=== PATIENT | female | born 1995 | race Caucasian/White ===

== ENCOUNTER 2020-04-04 20:25 | Outpatient (CLI) | payer MEDICAID, SELFPAY ==
[2020-04-04 20:46] VITALS: BP 163/77; PULSE 87
[2020-04-04 20:59] VITALS: BP 124/75; PULSE 85
[2020-04-04 21:00] VITALS: TEMP 36.9; BMI 43.4
[2020-04-04 21:09] VITALS: BP 117/60; PULSE 91
[2020-04-04 21:15] VITALS: BP 117/60; PULSE 91; RESP 16; TEMP 36.9
== END 2020-04-04 21:20 | disposition home or self-care (01) ==
LOC: OPOB 20:41 → OBGYN 21:15
PROVIDERS: Family Provider Family Medicine; PCP Family Medicine; Visit Provider Family Medicine
DX: O36.8190 Decreased fetal movements, unspecified trimester, not applicable or unspecified (principal); Z3A.00 Weeks of gestation of pregnancy not specified
CPT/HCPCS: 99211

== ENCOUNTER 2020-04-28 12:03 | Inpatient (IN) | payer MEDICAID, SELFPAY ==
[2020-04-28] VITALS (51 sets, daily range): BP systolic 0–185; BP diastolic 0–92; PULSE 68–102; RESP 16–18; TEMP 36.6–37; O2SAT 90–99; BMI 44.1
[2020-04-28 12:57] LABS: Basophils % 0.3 %; Eosinophils % 0.2 %; Hematocrit 36.4 % (37.0-47.0); Hemoglobin 11.6 g/dL (11.5-15.3); Lymphocytes % 16.8 %; Mean Corpuscular HGB Conc 31.9 g/dL (30.0-36.0); Mean Corpuscular Hemoglobin 26.9 pg (28.0-34.0); Mean Corpuscular Volume 84.5 fL (81-99); Mean Platelet Volume 10.6 fL (7.4-10.4); Monocytes # 0.4 10^3/uL (0.2-0.9); Monocytes % 3.8 %; Neutrophils # 9.11 10^3/uL (1.8-7.7); Neutrophils % 78.6 %; Nucleated Red Blood Cells % 0 %; Platelet Count 274 10^3/cmm (130-400); Red Blood Count 4.31 10^6/uL (4.1-5.3); White Blood Count 11.6 10^3/uL (4.0-10.0)
[2020-04-28] MEDS: miSOPROStol 100 mcg tablet 25 MCG VAGINAL ×2 (13:00→18:01)
[2020-04-28] MEDS: lactated ringers 1,000 ML 999 ML IV (15:09)
[2020-04-28] MEDS: acetaminophen 325 mg Tablet 650 MG PO (21:17)
[2020-04-28] MEDS: fentaNYL 50 mcg/mL INJ 2mL IV (22:28)
--- NOTE | 2020-04-28 23:06 | ANES.PREANE2 ---
Pre-Anesthetic Assessment Pre-Anesthetic Assessment: Height/Weight: Height 1.75 m Weight 135.624 kg Temp Pulse Resp BP 97.8 F 81 18 159/75 04/28/20 12:14 04/28/20 20:31 04/28/20 22:28 04/28/20 20:31 Preop Diagnosis: labor pains Proposed Procedure: epidural Was Beta Elmer taken within 24 hours: N/A Social: Social History: No alcohol and No tobacco Exam: Pre-Anes Outpt Exam: alert, oriented x 3, clear to auscultation bilaterally and regular rate & rhythm Airway: Submandibular: WNL Cervical ROM: WNL MP: 2 Dentition: Full Pulmonary: Pulmonary: None reported CV/HEM: CV/HEM: HTN : : None reported Hepatic: Hepatic: None reported GI: GI: GERD Metabolic: Metabolic: Morbid obesity Musc/skel: Musc/skel: None reported Neuropsych: Neuropsych: None reported Anesthetic Plan: ASA status: 2 Anesthesia: Eval. for regional block Risk of > 500 ml blood loss (7ml/kg in children): No Meds/Allergies Current Medications: Current Medications Generic Name Dose Route Start Last Admin Trade Name Freq PRN Reason Stop Dose Admin Acetaminophen 650 mg 04/28/20 12:14 04/28/20 21:17 Tylenol PO 650 mg Q6H PRN Administration Mild pain or temp > 100.4 Fentanyl 25 - 100 mcg 04/28/20 12:14 04/28/20 22:28 Sublimaze IV 25 mcg Q1H PRN Administration SEVERE PAIN Lactated Ringer's 1,000 mls @ 999 m ls/hr 04/28/20 12:14 04/28/20 15:39 Lactated Ringers IV 0 mls/hr .Q1H1M PRN Infusion Per L&D Rescitati on Protocol Dextrose/Lactated Ringer's 1,000 mls @ 125 m ls/hr 04/28/20 12:15 04/28/20 17:04 Dextrose 5%-Lact ated Ringers IV Not Given .Q8H JULIUS PFSH Anesthesia Female Reproductive History: : 1 Data Anesthesia CBC & Chem 7: 04/28/20 12:35 Other Labs: Laboratory Results - last 48 hr 04/28/20 12:35 WBC 11.6 H RBC 4.31 Hgb 11.6 Hct 36.4 L MCV 84.5 MCH 26.9 L MCHC 31.9 RDW 15.0 Plt Count 274 MPV 10.6 H Neut % (Auto) 78.6 Lymph % (Auto) 16.8 [place] % (Auto) 3.8 Eos % (Auto) 0.2 Baso % (Auto) 0.3 Neut # (Auto) 9.11 H Lymph # (Auto) 2.0 [place] # (Auto) 0.4 Eos # (Auto) 0.0 Baso # (Auto) 0.0 Nucleated RBC % (auto) 0 Nucleated RBCs # 0.0 Cardiac Studies: No Data to Display
--- NOTE | 2020-04-28 23:33 | ANES.PROC ---
Anesthesia Procedures Procedure/Date: 04/28/20 epidural Procedure Narrative: epidural complete, bolus given, epidural pump initiated with RESEARCH ASSISTANT education given, vitals taken during procedure using OBIX system and satisfactory throughout, patient admits to decrease pain, report of procedure to OB RN Epidural: Time Out Performed: Yes Consents Signed: Procedure Consent Consent: requested by attending/covering physician, from patient, risks and benefits reviewed and patient agrees to proceed Lumbar Level: L3-L4 Epidural position: sitting Epidural procedure: sterile prep of area, 1% lidocaine to numb the area (3 mL), 18 g needle, negative for paresthesia passed, neg for paresthesia, test dose given, 1.5% xylocaine 1:200k epi (5 mL), 0.2% Ropivacaine bolus ml (5 mL), placed PCEA, no systemic response, sterile dressing applied, L.U.D. no apparent complications and 0.2% Ropiavacaine @ mls/hr (13 mL/hr)
[2020-04-29] VITALS (95 sets, daily range): BP systolic 0–178; BP diastolic 0–87; PULSE 77–116; RESP 18–20; TEMP 36.6–37.6; O2SAT 97–99
--- NOTE | 2020-04-29 06:24 | P.PCNOB_ITS ---
Delivery Note: Date of delivery: April 29, 2020 this 24-year-old 1 now para 1 female with an EDC of 05/09/2020 was seen in the office on the day prior to delivery and found to have a blood pressure of 160s over 90s. She had also gained 6 pounds over the past week. She had no proteinuria but as she was 39 weeks with elevated blood pressures a decision was made to place the patient in the hospital for cervical ripening and induction. Benefits and risks were discussed with the patient and she agreed to proceed with this. She was given misoprostol 25 mcg x 2 doses last evening. She began having stronger contractions and was given epidural anesthesia. Her labor progressed throughout the night and early this morning she was dilated to complete cervical dilatation. This physician was called and the patient very quickly was able to deliver a healthy, viable female infant at 0606. The head was delivered and mouth and nose were suctioned at the perineum. The right shoulder was then delivered anteriorly followed by the posterior left shoulder. The was then completely delivered. She was then suctioned more prior to laying the infant on the mother's abdomen. After approximately 1 minute the umbilical cord was clamped and cut by the infant's father. The umbilical cord was noted to hav e 3 blood vessels. The placenta delivered spontaneously at 06 11. There was a small right first-degree perineal laceration which did not require repair. A sweep of the vaginal vault and fundal massage produced a very small amount of clots and bleeding. Apgars were 8 and 9 at 1 and 5 minutes respectively and infant weighed 7 pounds 12 ounces. There were no complications and estimated blood loss was approximately 114 mL. Pre-Delivery Course: This patient was followed by this physician throughout her course without major concerns or problems. Maternal blood type was AB+ with antibody negative. Rubella was immune and group B strep was negative. The patient was sent to labor and delivery secondary to elevated blood pressure. She had received no medications for this. Delivery: Spontaneous vaginal delivery. Post-Delivery Status: Patient doing well and will be followed for routine postdelivery care. A&P Assessment and plan (1) Normal spontaneous vaginal delivery: Routine postdelivery care. Monitor for problems or concerns. Status: Acute Coding Level of Care Code Acute Die Mounter for Chacho Dubon Diagnoses Normal spontaneous vaginal delivery O80
[2020-04-29] MEDS: docusate sodium 100 mg Capsule PO ×2 (08:02→22:13)
[2020-04-29] MEDS: prenatal vitamin Capsule 1 CAP PO (08:02)
--- NOTE | 2020-04-29 10:05 | PC.NURSE ---
Patient ambulated in [facility]am[facility] from LDR room to room. Assisted by nurse.
[2020-04-29] MEDS: benzocaine-menthol 78 gm Canister 1 SPRAY TOPICAL (11:11)
[2020-04-29 20:59] LABS: Hematocrit 33.7 % (37.0-47.0); Hemoglobin 10.8 g/dL (11.5-15.3); Mean Corpuscular Hemoglobin 27.1 pg (28.0-34.0); Mean Corpuscular Volume 84.5 fL (81-99); Mean Platelet Volume 10.3 fL (7.4-10.4); Platelet Count 218 10^3/cmm (130-400); Red Blood Count 3.99 10^6/uL (4.1-5.3); Red Cell Distribution Width 15.5 % (12.1-15.1); White Blood Count 15.1 10^3/uL (4.0-10.0)
[2020-04-30] VITALS: BP 128/78; PULSE 92; RESP 18; TEMP 36.6
[2020-04-30] MEDS: HYDROcodone-acetaminophen 5-325 mg Tablet PO (04:00)
[2020-04-30 06:00] VITALS: BP 115/74; PULSE 86; RESP 15; TEMP 36.6; O2SAT 98
--- NOTE | 2020-04-30 08:47 | PM.OBGYDC ---
Discharge Providers FOURDRINIER TENDER Date of Admission: 04/28/20 12:03 Date of Discharge: 04/30/20 Attending Provider at Admission: Julio Clifton MD Attending Provider at Discharge: Julio Clifton MD Primary Care Provider: Ar Love MD Diagnoses at Discharge Discharge Diagnosis (1) Normal spontaneous vaginal delivery: Status: Acute Problem details: Patient is doing very well . She has mild lochia and is tolerating a regular diet and ambulating well. She is felt to be stable for discharge. Hospital Course Hospital Course: As above, the patient has done well postdelivery and is stable for discharge. She has had only mild lochia. She is formula feeding. Information Peripartum Data: Delivery Method: Vaginal Physical Exam Const: COMMON NORMALS: no acute distress and healthy appearing Resp: COMMON NORMALS: normal respiratory effort, No retractions, No use of accessory muscles and clear to auscultation bilaterally AUSCULTATION: clear to auscultation bilaterally Cardio: COMMON NORMALS: regular rate, regular rhythm and No murmurs present (Cardio) RATE: regular rate RHYTHM: regular rhythm GI: COMMON NORMALS: Normal to inspection, nondistended, normoactive bowel sounds present, Soft to palpation and non-tender (Fundus is firm.) PALPATION: Yes Soft to palpation Extremity: COMMON NORMALS: normal to inspection, full ROM and capillary refill normal Neuro: COMMON NORMALS: CN's II-XII intact bilaterally, moves all extremities, no focal motor deficits and no sensory deficits noted Psych: COMMON NORMALS: mental status grossly normal Urinary Catheter Management^: Gregorio Latex: Cath Placed During This Visit: yes, but has since been removed by the nurse Reason for Continuing Indwelling Catheter: Other Urinary Catheter Date of Insertion: 04/29/20 Urinary Catheter Time of Insertion: 00:00 Date Urinary Catheter Removed: 04/29/20 Time Urinary Catheter Discontinued: 05:55 Discharge Data Data Completed and Pending: Pending at discharge Category Date Time Status PTC COVID [[place] virus Lab Test PTC ] Stat Lab 04/28/20 12:40 Received Labs from last 24 hours 04/29/20 04/29/20 20:50 20:00 WBC 15.1 H Cancelled Corrected WBC Cancelled RBC 3.99 L Cancelled Hgb 10.8 L Cancelled Hct 33.7 L Cancelled MCV 84.5 Cancelled MCH 27.1 L Cancelled MCHC 32.0 Cancelled RDW 15.5 H Cancelled Plt Count 218 Cancelled MPV 10.3 Cancelled Vitals: Last Vital Signs Temp 97.8 F 04/30/20 06:00 Pulse 86 04/30/20 06:00 Resp 15 04/30/20 06:00 BP 115/74 04/30/20 06:00 Pulse Ox 98 04/30/20 06:00 Discharge Plan Discharge Patient Disposition: Home Condition: Stable Prescriptions: New docusate sodium 100 mg Capsule 100 mg PO BID Qty: 60 RF: 2 ibuprofen 800 mg Tablet 800 mg PO TID Qty: 90 RF: 2 Continued omeprazole 10 mg Capsule,Delayed Release(Dr/Ec) 10 mg PO PRN PRN (Reason: Indigestion) RF: 0 vit-iron fum-folic ac [ Tablet] 28 mg iron- 800 mcg Tablet 1 tab PO DAILY RF: 0 Discharge Orders: Discharge Order (Routine); Ordered 04/30/20 Ordered By: Julio Clifton Referrals: Julio Clifton MD [Physician] - 6 Weeks (Follow-up with Dr. Clifton in 6 weeks and as needed.) Discharge Diet: Usual diet Discharge Activity: Resume usual activity Discharge Attestations FOURDRINIER TENDER Time Spent in Discharge Care*: less than 30 min Specific Discharge Activities: Specific discharge activities: educating patient, documenting/other paperwork and evaluating patient/reviewing data Status at Discharge: Cognitive status at discharge: cognitively intact, Behavioral status at discharge: cooperative, Functional status at discharge: independent ambulation Overall status at discharge: patient is back to baseline Coding Level of Care Code Acute Director Food Safety for Chg Fwd Diagnoses Normal spontaneous vaginal delivery O80
--- NOTE | 2020-04-30 09:50 | ANE.PACU2 ---
Inpatient post-anesthesia follow up: Airway intact: Yes Vital signs: Temperature 97.8 F Pulse Rate 86 Respiratory Rate 15 Blood Pressure 115/74 Pulse Oximetry 98 Oxygen Delivery Me thod Room Air Oxygen Flow Rate Fraction of Inspir ed Oxygen Hydration adequate: Yes Nausea and vomiting: No Pain level: 2 Mental status: Baseline Additional Comments: No signs of infection at neuraxial site, up and walking, no headaches
[2020-04-30] MEDS: prenatal vitamin Capsule 1 CAP PO (10:05)
[2020-04-30] MEDS: docusate sodium 100 mg Capsule PO (10:05)
[2020-04-30 10:34] LABS: Coronavirus Lab Test PTC Negative
[2020-04-30 10:48] VITALS: BP 113/86; PULSE 80; RESP 17; TEMP 36.9; O2SAT 98
[2020-04-30 10:50] VITALS: BP 113/86; PULSE 80; RESP 17; TEMP 36.9; O2SAT 98
== END 2020-04-30 10:52 | disposition home or self-care (01) | DRG 807 ==
PROVIDERS: Admitting Provider Family Medicine; Family Provider Family Medicine; PCP Family Medicine; Visit Provider Family Medicine
DX: O13.4 Gestational [pregnancy-induced] hypertension without significant proteinuria, complicating childbirth (principal); Z37.0 Single live birth; O70.0 First degree perineal laceration during delivery; Z3A.39 39 weeks gestation of pregnancy
CPT/HCPCS: 12345; 36415; 51702; 59025; 59409; 85025; 85027; 87635; 96374; J3010

== ENCOUNTER → 2021-02-26 16:02 | Outpatient (BNVA) | payer MEDICAID, SELFPAY | PROVIDERS: Family Provider Family Medicine; PCP Family Medicine; Visit Provider Nurse Practitioner Family | DX: Z20.822 Contact with and (suspected) exposure to COVID-19 (principal) | CPT/HCPCS: 87635 ==

== ENCOUNTER 2021-07-23 | Outpatient (CLI) | payer MEDICAID, SELFPAY | END 2021-07-23 00:01 | disposition home or self-care (01) | LOC: LAB 12-24 15:04 | PROVIDERS: PCP Family Medicine; Visit Provider Family Medicine | DX: Z34.81 Encounter for supervision of other normal pregnancy, first trimester (principal) | CPT/HCPCS: 84702 ==

== ENCOUNTER 2021-08-24 11:33 | Emergency (ER) | payer MEDICAID, SELFPAY ==
--- NOTE | 2021-08-24 11:44 | US_ITS ---
WS: [id number] EARLY OBSTETRICAL ULTRASOUND (<14 WEEKS). HISTORY: 9 weeks and bleeding COMPARISON: None. Single intrauterine gestational sac is identified. No cardiac activity identified. [place]-rump length measures 1.3 cm which corresponds to a gestation of 7w4d. Normal-appearing yolk sac and amnion demons trated. No subchorionic hemorrhage. No free fluid. Normal size ovaries with no mass. Small amount of fluid along the cervical canal. US/US OB <=14 wk fetus w transvag IMPRESSION: 1. Single uterine gestation of 7 weeks 5 days. 2. No cardiac activity identified. At this gestational age cardiac activity sh ould be readily visible. Findings consistent with embryonic demise.
[2021-08-24 11:45] VITALS: PULSE 89; RESP 16; TEMP 36.3; O2SAT 98; BMI 41.3
--- NOTE | 2021-08-24 11:49 | W.ED.PREGNAN ---
HPI - General: Chief complaint: Vaginal Bleeding Stated complaint: 9 Wks /bleeding Time Seen by Provider: 08/24/21 11:49 History of Present Illness: HPI Narrative: 26-year-old female presents emergency room approximately 9 weeks gestation per 7-week ultrasound done at her primary OBs office 2 weeks ago. She has had painless vaginal bleeding that began earlier today. She denies any abdominal pain. She previously had ultrasound that confirmed intrauterine . MD Complaint: vaginal bleeding Onset (ago): hour(s) Pain Consistency: intermittent Relieving factors: none Vaginal discharge: none Date of Last Menstrual Period: 05/24/21 OB History - Current : no complications care: followed by OB and previous ultrasound confirms IUP Associated symptoms: Deny abdominal pain, dyspareunia, dysuria, headache(s), malaise, nausea, rash, seizures, short of breath, syncope, vaginal bleeding, vaginal discharge, visual changes, vomiting or weakness Review of Systems Const: Denies: malaise ENMT: Denies: throat pain, ear or mastoid pain, nasal discharge or nasal congestion Card: Denies: syncope Resp: Denies: dyspnea, productive cough or non-productive cough GI: Denies: abdominal pain, nausea or vomiting : Denies: dysuria, vaginal discharge or dyspareunia Skin/Breast: Denies: rash or pruritus Neuro: Denies: headache(s) PFSH ED PFSH: Medical History (Updated 08/24/21 @ 13:05 by Shaggy Pollard DO) Obesity state, incidental (~05/2021) Social History (Updated 08/24/21 @ 13:00 by Shaggy Pollard DO) Smoking and tobacco status: never smoked Alcohol intake: never Female Reproductive History: Date of last menstrual period: 05/24/21 Physical Exam Const: COMMON NORMALS: no acute distress GENERAL APPEARANCE: cooperative and comfortable ORIENTATION/CONSCIOUSNESS: Yes awake, Yes oriented to person, Yes oriented to place and Yes oriented to time HENMT: COMMON NORMALS: normocephalic, atraumatic and hearing grossly normal bilaterally HEAD & SCALP: normocephalic and atraumatic Neck/C-Spine: COMMON NORMALS: no JVD Resp: COMMON NORMALS: normal respiratory effort, No retractions, No use of accessory muscles and clear to auscultation bilaterally AUSCULTATION: clear to auscultation bilaterally Cardio: COMMON NORMALS: no JVD, regular rate, regular rhythm and No murmurs present (Cardio) RATE: regular rate RHYTHM: regular rhythm GI: COMMON NORMALS: Soft to palpation and No hepatosplenomegaly present AUSCULTATION: Yes normoactive bowel sounds PALPATION: Yes Soft to palpation, No Tenderness to palpation present (GI), No Guarding due to palpation present (GI) and Yes No hepatosplenomegaly present : SPECULUM EXAM - VAGINA: No vaginal bleeding OB/EXTERNAL & SPECULUM: No vaginal bleeding Extremity: COMMON NORMALS: normal to inspection, capillary refill normal, no clubbing, cyanosis or edema, no calf tenderness and no pedal edema Neuro: SENSORIUM/ORIENTATION: Yes oriented to person, Yes oriented to place and Yes oriented to time Course Vital Signs: Vital signs: Vital Signs Temperature 97.4 F L 08/24/21 11:45 Pulse Rate 89 08/24/21 11:45 Respiratory Rate 16 08/24/21 11:45 Pulse Oximetry 98 08/24/21 11:45 MDM - OB/Uterine Contractions MDM Narrative: Medical decision making narrative: Patient is Rh+. Ultrasound confirms intrauterine however there is an off heart activity. Her beta-hCG is quite low for this point in . Reviewed with the patient we will have her follow-up with Dr. Sadler her primary OB next week and return if she has further problems anticipate she will continue to have some bleeding and likely to have increased cramping. She not having significant of bleeding now. Lab Data: Labs: Lab Results 08/24/21 08/24/21 08/24/21 12:11 12:11 12:11 WBC 10.6 10^3/uL H 10 ^3/uL (4.0-10.0) RBC 4.98 10^6/uL 10^6 /uL (4.1-5.3) Hgb 14.4 g/dL g/dL (11.5-15.3) Hct 44.5 % % (37.0-47.0) MCV 89.4 fl fl (81-99) MCH 28.9 pg pg (28.0-34.0) MCHC 32.4 g/dL g/dL (30.0-36.0) RDW 12.5 % % (12.1-15.1) Plt Count 255 10^3/cmm 10^3 /cmm (130-400) MPV 9.6 fL fL (7.4-10.4) Neut % (Auto) 70.8 % % Lymph % (Auto) 24.1 % % [place] % (Auto) 3.5 % % Eos % (Auto) 0.8 % % Baso % (Auto) 0.5 % % Neut # (Auto) 7.52 10^3/uL 10^3 /uL (1.8-7.7) Lymph # (Auto) 2.6 10^3/uL 10^3/ uL (0.8-4.8) [place] # (Auto) 0.4 10^3/uL 10^3/ uL (0.2-0.9) Eos # (Auto) 0.1 10^3/uL 10^3/ uL (0.0-0.8) Baso # (Auto) 0.1 10^3/uL 10^3/ uL (0.0-0.1) Nucleated RBC % (a uto) 0 % % Nucleated RBCs # 0.0 /100WBC /100W BC Sodium 137 mmol/L mmol/L (136-145) Potassium 3.9 mmol/L mmol/L (3.5-5.1) Chloride 101 mmol/L mmol/L (98-107) Carbon Dioxide 19 mmol/L L mmol/ L (22-29) Anion Gap 20.9 H (5-19) BUN 8 mg/dL mg/dL (6-20) Creatinine 0.5 mg/dL mg/dL (0.5-0.9) GFR Calculation 150.3 mL/min H mL /min (90-130) Glucose 98 mg/dL mg/dL (65-115) Calculated Osmolal ity 282 mOsm/kg L mOs m/kg (285-295) Calcium 9.7 mg/dL mg/dL (8.5-10.5) Total Bilirubin 0.3 mg/dL mg/dL (0.15-1.2) AST 12 U/L U/L (0-32) ALT 9 U/L U/L (0-33) Alkaline Phosphata se 126 IU/L H IU/L (35-105) Total Protein 7.5 g/dL g/dL (6.6-8.7) Albumin 4.1 g/dL g/dL (3.5-5.2) Globulin 3.4 g/dL g/dL (1.3-4.6) Ser , María i-Qnt 2197.00 mIU/mL mI U/mL Rho(D) Type Positive Discharge Plan Discharge Patient Disposition: Home Clinical Impression: Spontaneous miscarriage Condition: Stable Prescriptions: No Action Gummies 400 mcg-35 mg- 25 mg-5 mg Tablet,Chewable 2 tab PO QAM RF: 0 Discharge Orders: Discharge ED (Routine); Ordered 08/24/21 Ordered By: Shaggy Pollard Referrals: Ar Love MD [Primary Care Provider] - Discharge Diet: Usual diet Discharge Activity: Resume usual activity Patient Instructions: Opioid Safety Activity Restrictions/Additional Instructions: Follow-up with your primary care doctor within the next week. Coding Level of Care Code ED Drug Inspector for Chacho Fwd Exam Comprehensive
[2021-08-24 12:24] LABS: Basophils # 0.1 10^3/uL (0.0-0.1); Basophils % 0.5 %; Eosinophils # 0.1 10^3/uL (0.0-0.8); Eosinophils % 0.8 %; Hematocrit 44.5 % (37.0-47.0); Hemoglobin 14.4 g/dL (11.5-15.3); Lymphocytes # 2.6 10^3/uL (0.8-4.8); Lymphocytes % 24.1 %; Mean Corpuscular HGB Conc 32.4 g/dL (30.0-36.0); Mean Corpuscular Hemoglobin 28.9 pg (28.0-34.0); Mean Corpuscular Volume 89.4 fl (81-99); Mean Platelet Volume 9.6 fL (7.4-10.4); Monocytes # 0.4 10^3/uL (0.2-0.9); Monocytes % 3.5 %; Neutrophils # 7.52 10^3/uL (1.8-7.7); Neutrophils % 70.8 %; Nucleated Red Blood Cells % 0 %; Platelet Count 255 10^3/cmm (130-400); Red Blood Count 4.98 10^6/uL (4.1-5.3); Red Cell Distribution Width 12.5 % (12.1-15.1); White Blood Count 10.6 10^3/uL (4.0-10.0)
[2021-08-24 12:56] LABS: Alanine Aminotransferase 9 U/L (0-33); Albumin Level 4.1 g/dL (3.5-5.2); Alkaline Phosphatase 126 IU/L (35-105); Anion Gap 20.9 (5-19); Aspartate Amino Transferase 12 U/L (0-32); Blood Urea Nitrogen 8 mg/dL (6-20); Calcium 9.7 mg/dL (8.5-10.5); Carbon Dioxide 19 mmol/L (22-29); Chloride 101 mmol/L (98-107); Globulin 3.4 g/dL (1.3-4.6); Glomerular Filtration Rate 150.3 mL/min (90-130); Glucose 98 mg/dL (65-115); Osmolality Calculated 282 mOsm/kg (285-295); Potassium 3.9 mmol/L (3.5-5.1); Sodium 137 mmol/L (136-145); Total Bilirubin 0.3 mg/dL (0.15-1.2); Total Protein 7.5 g/dL (6.6-8.7)
== END 2021-08-24 13:47 | disposition home or self-care (01) ==
PROVIDERS: Physician Assistant; Emergency Provider Family Medicine; PCP Family Medicine
DX: O03.9 Complete or unspecified spontaneous abortion without complication (principal)
CPT/HCPCS: 76801; 76817; 80053; 84702; 85025; 99283

== ENCOUNTER → 2022-01-20 10:34 | Outpatient (BNVA) | payer MEDICAID, SELFPAY | PROVIDERS: PCP Family Medicine; Visit Provider Emergency Medicine | DX: R05.9 Cough, unspecified (principal); J06.9 Acute upper respiratory infection, unspecified | CPT/HCPCS: 87400; 87880 ==

== ENCOUNTER 2022-04-22 12:42 | Outpatient (CLI) | payer MEDICAID, SELFPAY ==
[2022-04-22] VITALS (7 sets, daily range): BP systolic 115–141; BP diastolic 56–81; PULSE 82–93; BMI 43.2
[2022-04-22 13:50] LABS: Add Urine Culture? Yes; Bacteria Urine 1+ /hpf; Bilirubin Urine Neg (Negative); Blood Urine Neg (Negative); Glucose Urine UA Norm (Normal); Ketones Urine Negative (Negative); Leukocyte Esterase Urine Negative (Negative); Nitrate Urine Negative (Negative); Protein Urine Neg (Negative); RBC Urine 0-4 /hpf (0-2); Specific Gravity, Urine 1.015 (1.005-1.030); Urine Appearance Clear (CLEAR); Urine Color Yellow (Yellow); Urobilinogen Urine Norm (Negative); WBC Urine 0-4 /hpf (0-5); pH Urine 7 (5-7)
== END 2022-04-22 14:24 | disposition home or self-care (01) ==
LOC: OPOB 12:42 → OBGYN 12:43
PROVIDERS: PCP Family Medicine; Visit Provider Family Medicine
DX: O47.03 False labor before 37 completed weeks of gestation, third trimester (principal); Z3A.31 31 weeks gestation of pregnancy
CPT/HCPCS: 59025; 81001; 87086; 99211

== ENCOUNTER 2022-05-23 17:59 | Outpatient (CLI) | payer MEDICAID, SELFPAY ==
[2022-05-23 18:00] VITALS: RESP 17; BMI 46.3
[2022-05-23 18:13] VITALS: BP 126/73; PULSE 98
[2022-05-23 18:28] VITALS: BP 136/64; PULSE 88
[2022-05-23 18:43] VITALS: BP 128/60; PULSE 88
[2022-05-23 18:45] LABS: Nitrazine Paper, PH Negative
[2022-05-23 18:58] VITALS: BP 114/56; PULSE 90
[2022-05-23 19:13] VITALS: BP 115/62; PULSE 85; RESP 16
== END 2022-05-23 19:30 | disposition home or self-care (01) ==
LOC: OPOB 18:00 → OBGYN 18:00
PROVIDERS: PCP Family Medicine; Visit Provider Family Medicine
DX: O26.899 Other specified pregnancy related conditions, unspecified trimester (principal); Z3A.00 Weeks of gestation of pregnancy not specified; N89.8 Other specified noninflammatory disorders of vagina
CPT/HCPCS: 59025; 83986; 99211

== ENCOUNTER 2022-06-11 17:04 | Inpatient (IN) | payer MEDICAID, SELFPAY ==
[2022-06-11] VITALS (14 sets, daily range): BP systolic 119–147; BP diastolic 63–85; PULSE 84–102; RESP 15–16; BMI 46.0
[2022-06-11 17:27] LABS: Basophils % 0.3 %; Eosinophils # 0.1 10^3/uL (0.0-0.8); Eosinophils % 0.5 %; Hematocrit 33.3 % (37.0-47.0); Hemoglobin 10.8 g/dL (11.5-15.3); Lymphocytes # 2.3 10^3/uL (0.8-4.8); Lymphocytes % 21.2 %; Mean Corpuscular HGB Conc 32.4 g/dL (30.0-36.0); Mean Corpuscular Hemoglobin 26.6 pg (28.0-34.0); Mean Platelet Volume 10.3 fL (7.4-10.4); Monocytes # 0.6 10^3/uL (0.2-0.9); Monocytes % 5.5 %; Neutrophils # 7.73 10^3/uL (1.8-7.7); Neutrophils % 71.6 %; Nucleated Red Blood Cells % 0 %; Platelet Count 223 10^3/cmm (130-400); Red Blood Count 4.06 10^6/uL (4.1-5.3); White Blood Count 10.8 10^3/uL (4.0-10.0)
[2022-06-11] MEDS: dextrose 5%-lactated ringers 1,000 ML 125 ML IV (17:49)
[2022-06-11] MEDS: miSOPROStol 100 mcg tablet 25 MCG VAGINAL ×2 (17:50→22:13)
[2022-06-12] VITALS (55 sets, daily range): BP systolic 115–185; BP diastolic 58–120; PULSE 80–122; RESP 16–17; TEMP 36.5–37; O2SAT 91–100
[2022-06-12] MEDS: lactated ringers 1,000 ML 999 ML IV ×2 (00:17→01:50)
--- NOTE | 2022-06-12 01:15 | ANES.PREANE2 ---
Pre-Anesthetic Assessment Height/Weight: Height 1.7 m Weight 133.356 kg Pulse Resp BP O2 Del Method 85 16 143/85 06/11/22 22:17 06/11/22 21:05 06/11/22 22:17 06/11/22 17:00 Preop Diagnosis: labor pains epidural Familial anesthetic complications: none Was Beta Elmer taken within 24 hours: N/A Was Clonidine taken within 24 hours: N/A Social No alcohol and No tobacco Exam alert, oriented x 3, clear to auscultation bilaterally and regular rate & rhythm Airway Submandibular: within normal limits Cervical ROM: within normal limits Mallampati: Class II Dentition: full Pulmonary None reported CV/HEM None reported None reported Hepatic None reported GI Gastroesophageal Reflux Disease Metabolic None reported Musc/skel None reported Neuropsych Headache Anesthetic Plan ASA status: 2 Anesthesia: Regional (specify below) Risk of > 500 ml blood loss (7ml/kg in children): No Medications/Allergies Home Medications Medication Instructions Recorded Confirmed Last Taken Type PNV 153-FA 400 mcg-om3 35 mg-dha 2 tab PO QAM 08/24/21 01/20/22 06/11/22 08:00 History 25 mg-epa 5 mg-fish oil chew tablet ( Gummies) Allergies Allergy/AdvReac Type Severity Reaction Status Date / Time No Known Allergies Allergy Verified 06/11/22 17:14 Current Medications Generic Name Dose Route Start Last Admin Trade Name Freq PRN Reason Stop Dose Admin Dextrose/Lactated Ringer's 1,000 mls @ 125 mls/hr 06/11/22 17:15 06/11/22 17:49 Dextrose 5%-Lactated Ringers IV 125 mls/hr .Q8H JULIUS Administration Lactated Ringer's 1,000 mls @ 999 mls/hr 06/12/22 00:05 06/12/22 00:17 Lactated Ringers IV 999 mls/hr .Q1H1M PRN Administration See label comments Misoprostol 25 mcg 06/11/22 17:45 06/11/22 22:13 Misoprostol 100 Mcg Tablet VAGINAL 06/12/22 01:46 25 mcg Q4H JULIUS Administration PFSH Anesthesia Medical History Obesity state, incidental (~05/2021) Social History Smoking and tobacco status: never smoked Alcohol intake: never Female Reproductive History Date of last menstrual period: 05/24/21 Data Anesthesia : 06/11/22 17:15 Short CBC 06/11/22 Range/Units 17:15 WBC 10.8 H (4.0-10.0) 10^3/uL Hgb 10.8 L (11.5-15.3) g/dL Hct 33.3 L (37.0-47.0) % MCV 82.0 (81-99) fl Plt Count 223 (130-400) 10^3/cmm Neut % (Auto) 71.6 % Neut # (Auto) 7.73 H (1.8-7.7) 10^3/uL Cardiac Studies: No Data to Display
--- NOTE | 2022-06-12 02:08 | ANES.PROC ---
Anesthesia Procedures Procedure/Date: 06/12/22 epidural Procedure Narrative: epidural complete, bolus given, epidural pump initiated with STATE TROOPER education given, vitals taken during procedure and satisfactory throughout, patient admits to decrease pain, report of procedure to OB RN Epidural: Time Out Performed: Yes Consents Signed: Procedure Consent Consent: requested by attending/covering physician, from patient, risks and benefits reviewed and patient agrees to proceed Lumbar Level: L3-L4 Epidural position: sitting Epidural procedure: sterile prep of area, 1% lidocaine to numb the area (3 mL), 18 g needle, negative for paresthesia passed, neg for paresthesia, test dose given, 1.5% xylocaine 1:200k epi (5 mL), 0.2% Ropivacaine bolus ml (5 mL), placed PCEA, no systemic response, sterile dressing applied, L.U.D. no apparent complications and 0.2% Ropiavacaine @ mls/hr (13 mL/hr)
[2022-06-12] MEDS: dextrose 5%-lactated ringers 1,000 ML 125 ML IV (02:58)
[2022-06-12] MEDS: ondansetron 2 mg/ML SDV 2 mL 4 MG IVP (04:05)
[2022-06-12] MEDS: oxytocin 30 UNIT/500 ML BAG 600 UNIT IV (04:08)
--- NOTE | 2022-06-12 04:25 | PM.DELIVERY ---
Delivery Note: Date of delivery: June 12, 2022 Pre-delivery diagnoses: 26-year-old 3 para 1-0-1-1 with an estimated gestational age of 39 weeks Post-delivery diagnoses: Status post spontaneous vaginal delivery Procedure: Spontaneous vaginal delivery Delivering Physician: Kike Sadler Estimated blood loss (mL): 200 Pre-Delivery Course: The patient presented to the hospital for induction due to presumed macrosomia. The patient was placed on Cytotec 25 mcg per vagina x2. An epidural was placed. She progressed to complete without difficulty. Spontaneous rupture of membranes occurred. Delivery: DELIVERY: The patient progressed to complete without difficulty. She delivered a female with a weight of 8 pounds 7 ounces with Apgars of 8, 9. The baby was delivered from the SAJAN position and placed on the mother's abdomen. The cord was then clamped and cut. There was a nuchal cord x1. The baby was delivered through the nuchal cord. There was no meconium. The placenta and 3 vessel cord were delivered intact shortly thereafter. The perineum and vaginal vault were carefully examined. No lacerations were noted. Both the mother and the baby were in stable condition. Post-Delivery Status: Good A&P Assessment and plan (1) 39 weeks gestation of : I anticipate routine care. (2) Spontaneous vaginal delivery: Coding Level of Care Code Acute Registered Nurse Step Down for Chg Fwd Diagnoses 39 weeks gestation of Z3A.39 Spontaneous vaginal delivery O80
--- NOTE | 2022-06-12 04:29 | PM.OPHPUD ---
Labor & Delivery H&P Update Date of Procedure: June 12, 2022 Date H&P Performed: 06/10/22 Changes to previous documentation: None Admission Diagnosis: 26-year-old 3 para 1-0-0-1 with likely macrosomia Preop diagnosis: labor pains Planned procedure: Spontaneous vaginal delivery Other information: Andrew is a 39-week female presenting to the hospital for induction. Her has been relatively unremarkable. She has been measuring 3 to 4 cm ahead for the last month. Otherwise her has been relatively unremarkable. Her blood type is AB+. Her antibody screen is negative. Her glucose screen was 94 her GBS status is negative. She is rubella immune. Otherwise her infectious disease profile has been within normal limits. Related Problem List Diagnoses (1) 39 weeks gestation of : I anticipate a routine induction with a spontaneous vaginal delivery. Because of the mother's BMI, and the measurements of the , we are aware of the possibility of macrosomia and possible complications that could result. (2) Obesity: A&P Assessment and plan (1) 39 weeks gestation of : Status: Acute (2) Obesity: Status: Acute
[2022-06-12] MEDS: docusate sodium 100 mg Capsule PO ×2 (08:03→18:00)
[2022-06-12] MEDS: prenatal vitamin Capsule 1 CAP PO (08:03)
[2022-06-12] MEDS: ibuprofen 800 mg tablet PO ×3 (08:03→20:34)
[2022-06-12] MEDS: HYDROcodone-acetaminophen 5-325 mg Tablet PO ×2 (10:22→18:00)
--- NOTE | 2022-06-12 14:14 | ANE.PACU2 ---
Inpatient post-anesthesia follow up: Airway intact: Yes Vital signs: Temperature 98.1 F Pulse Rate 87 Respiratory Rate 16 Blood Pressure 125/80 Pulse Oximetry 98 Oxygen Delivery Me thod Room Air Oxygen Flow Rate Fraction of Inspir ed Oxygen Hydration adequate: Yes Nausea and vomiting: No Pain level: 2 Mental status: Baseline
[2022-06-12 16:54] LABS: Hematocrit 31.3 % (37.0-47.0); Hemoglobin 9.5 g/dL (11.5-15.3); Mean Corpuscular HGB Conc 30.4 g/dL (30.0-36.0); Mean Corpuscular Hemoglobin 26.2 pg (28.0-34.0); Mean Corpuscular Volume 86.5 fl (81-99); Mean Platelet Volume 10.2 fL (7.4-10.4); Platelet Count 175 10^3/cmm (130-400); Red Blood Count 3.62 10^6/uL (4.1-5.3); Red Cell Distribution Width 14.1 % (12.1-15.1); White Blood Count 14.2 10^3/uL (4.0-10.0)
[2022-06-12] MEDS: benzocaine-menthol 78 gm Canister 1 SPRAY TOPICAL (20:35)
[2022-06-12] MEDS: acetaminophen 325 mg Tablet 650 MG PO (21:44)
[2022-06-13 04:36] VITALS: BP 136/85; PULSE 86; RESP 16
[2022-06-13] MEDS: acetaminophen 325 mg Tablet 650 MG PO (05:04)
--- NOTE | 2022-06-13 06:46 | P.DS_ITS ---
Discharge Providers ENTRY LEVEL CHEMIST Date of Admission: 06/11/22 17:04 Date of Discharge: 06/13/22 Attending Provider at Admission: Kike Sadler MD Attending Provider at Discharge: Kike Sadler MD Primary Care Provider: Ar Love MD Diagnoses at Discharge Discharge Diagnosis (1) 39 weeks gestation of : Status: Acute (2) Obesity: Status: Acute Reason for Visit Reason for Visit: induction Hospital Course Hospital Course The patient presented to the hospital for induction. She was placed on Cytotec 25 mcg x 2. She then progressed to complete had spontaneous rupture of membranes. She then had an unremarkable delivery of a healthy-appearing 39-week female . Her course was unremarkable. Her bleeding was within normal limits. She bottle-fed her baby. Her pain was well controlled. There were no concerns. Information Peripartum Data: Infant Delivery Method: Vaginal Physical Exam Narrative: The patient is alert. She appears comfortable. Her heart has a regular rate and rhythm with no murmurs appreciated. Lungs are clear to auscultation bilaterally. Her fundus is firm and below the umbilicus. Urinary Catheter Management: Gregorio: Cath Placed During This Visit: yes, but has since been removed by the nurse Reason for Continuing Indwelling Catheter: Decision to DC Catheter Urinary Catheter Date of Insertion: 06/12/22 Urinary Catheter Time of Insertion: 02: Date Urinary Catheter Removed: 06/12/22 Time Urinary Catheter Discontinued: 04:09 Discharge Data Studies Completed and Pending Laboratory Results WBC 14.2 10^3/uL (4.0-10.0) H 06/12/22 16:05 RBC 3.62 10^6/uL (4.1-5.3) L 06/12/22 16:05 Hgb 9.5 g/dL (11.5-15.3) L 06/12/22 16:05 Hct 31.3 % (37.0-47.0) L 06/12/22 16:05 MCV 86.5 fl (81-99) D 06/12/22 16:05 MCH 26.2 pg (28.0-34.0) L 06/12/22 16:05 MCHC 30.4 g/dL (30.0-36.0) D 06/12/22 16:05 RDW 14.1 % (12.1-15.1) 06/12/22 16:05 Plt Count 175 10^3/cmm (130-400) 06/12/22 16:05 MPV 10.2 fL (7.4-10.4) 06/12/22 16:05 Neut % (Auto) 71.6 % 06/11/22 17:15 Lymph % (Auto) 21.2 % 06/11/22 17:15 [place] % (Auto) 5.5 % 06/11/22 17:15 Eos % (Auto) 0.5 % 06/11/22 17:15 Baso % (Auto) 0.3 % 06/11/22 17:15 Neut # (Auto) 7.73 10^3/uL (1.8-7.7) H 06/11/22 17:15 Lymph # (Auto) 2.3 10^3/uL (0.8-4.8) 06/11/22 17:15 [place] # (Auto) 0.6 10^3/uL (0.2-0.9) 06/11/22 17:15 Eos # (Auto) 0.1 10^3/uL (0.0-0.8) 06/11/22 17:15 Baso # (Auto) 0.0 10^3/uL (0.0-0.1) 06/11/22 17:15 Nucleated RBC % (auto) 0 % 06/11/22 17:15 Nucleated RBCs # 0.0 /100WBC 06/11/22 17:15 Vitals Last Vital Signs Temp 98.1 F 06/12/22 22:36 Pulse 86 06/13/22 04:36 Resp 16 06/13/22 04:36 BP 136/85 06/13/22 04:36 Pulse Ox 98 06/12/22 16:00 O2 Del Method 06/12/22 16:00 Discharge Plan Discharge Patient Disposition: Home Condition: Stable Prescriptions: New ibuprofen 800 mg Tablet 800 mg PO TID Qty: 30 0RF Continued Gummies 400 mcg-35 mg- 25 mg-5 mg Tablet,Chewable 2 tab PO QAM Discharge Orders: Discharge Order (Routine); Ordered 06/13/22 Ordered By: Kike Sadler Referrals: Kike Sadler MD [Physician] - 07/23/22 12:45 pm Discharge Diet: Usual diet Discharge Activity: Limit activity as instructed Patient Instructions: Ibuprofen (By mouth), Preeclampsia During (DC), Bleeding (DC), Hemorrhage (DC), OB Discharge Report, OB Food/Drug Interaction Guide, OB Care at Home, Opioid Safety, OB P ostpartum Home Care, OB Vaginal Deliveries, Abnormal Bleeding Discharge Attestations ENTRY LEVEL CHEMIST Time Spent in Discharge Care*: less than 30 min Status at Discharge: Cognitive status at discharge: cognitively intact , Behavioral status at discharge: cooperative , Coding Level of Care Code Acute Entry Level Chemist for Chg Fwd Diagnoses 39 weeks gestation of Z3A.39 Obesity E66.9
[2022-06-13] MEDS: HYDROcodone-acetaminophen 5-325 mg Tablet PO (07:26)
[2022-06-13] MEDS: ibuprofen 800 mg tablet PO (09:04)
[2022-06-13] MEDS: prenatal vitamin Capsule 1 CAP PO (09:04)
[2022-06-13] MEDS: docusate sodium 100 mg Capsule PO (09:04)
[2022-06-13 09:05] VITALS: BP 146/88; PULSE 116; RESP 17; TEMP 36.4
== END 2022-06-13 09:40 | disposition home or self-care (01) | DRG 807 ==
LOC: OBGYN 06-12 12:16
PROVIDERS: Admitting Provider Family Medicine; PCP Family Medicine; Visit Provider Family Medicine
DX: O69.2XX0 Labor and delivery complicated by other cord entanglement, with compression, not applicable or unspecified (principal); Z37.0 Single live birth; O99.214 Obesity complicating childbirth; O36.63X0 Maternal care for excessive fetal growth, third trimester, not applicable or unspecified; Z3A.39 39 weeks gestation of pregnancy
CPT/HCPCS: 12345; 36415; 51702; 59025; 59409; 85025; 85027; 96374; J2405; J2590; J2795; J7120; J7121

== ENCOUNTER 2023-11-24 22:25 | Emergency (ER) | payer MEDICAID, SELFPAY ==
[2023-11-24 22:30] VITALS: BP 159/99; PULSE 83; RESP 18; TEMP 36.8; O2SAT 99; BMI 43.2
--- NOTE | 2023-11-24 22:51 | XRR_ITS ---
PROCEDURE INFORMATION: Exam: XR Chest Exam date and time: 11/24/2023 11:07 PM Age: 28 years old Clinical indication: Other: Hypertensive; Additional info: Elevated BP, no dx of HTN TECHNIQUE: Imaging protocol: Radiologic exam of the chest. Views: 1 view. COMPARISON: No relevant prior studies available. FINDINGS: Lungs: Unremarkable. No consolidation. Pleural spaces: Unremarkable. No pleural effusion. No pneumothorax. Heart/Mediastinum: Unremarkable. No cardiomegaly. Bones/joints: Unremarkable. XR/XR chest 1V [id number] IMPRESSION: No acute findings.
--- NOTE | 2023-11-24 22:54 | ED_ITS ---
Documented by User: HERNÁN Levi 11/25/23 02:46 HPI - General Adult 2 General: Chief complaint: General Medical Stated complaint: high bp Time Seen by Provider: 11/24/23 22:30 Source: patient Mode of arrival: ambulatory Limitations: no limitations History of Present Illness: Patient presents emergency department today for evaluation treatment of elevated blood pressure readings. Patient states that for at least a year, she has been dealing with elevated blood pressure readings off and on. She states that she noticed elevated blood pressure readings since having her daughter. She states it does not happen all the time but becomes symptomatic with redness and flushing in her face and headache. She states she had symptoms today and had a blood pressure reading with systolic over 200 and diastolic over 100. She states symptoms will sometimes last an hour or so. She often takes Tylenol for her headache during these times. Patient has never been seen by her primary care doctor for complaints of elevated blood pressure reading and does not take blood pressure medication. She does have a family history of hypertension and heart disease. Patient admits that she is feeling better since her elevated blood pressure readings at home but still has a mild headache. She denies any known triggers for her episodes of elevated blood pressure. Review of Systems 2 General: Reports: 10 or more systems reviewed and unremarkable except in HPI and below PFSH ED 2 PFSH: Medical History state, incidental (~05/2021) Obesity Social History Smoking and tobacco/nicotine status: never used tobacco/nicotine Alcohol intake: never Female Reproductive History: Date of last menstrual period: 11/09/23 Physical Exam 2 Const: COMMON NORMALS: no acute distress, patient oriented x3 and alert O THER: Patient is pleasant, social. Answers her own history. Eye: COMMON NORMALS: Equal, round and reactive pupils present, EOMs intact bilaterally and conjunctivae normal CONJUNCTIVA: Yes conjunctivae normal P UPIL: Yes Equal, round and reactive pupils present Neck/C-Spine: COMMON NORMALS: full ROM and no JVD Lymph: LYMPHATIC: no lymphadenopathy noted Resp: COMMON NORMALS: normal respiratory effort, No retractions and No use of accessory muscles Cardio: COMMON NORMALS: no JVD, regular rate and regular rhythm RATE: r egular rate RHYTHM: regular rhythm : COMMON NORMALS: Yes no CVA tenderness BLADDER/KIDNEY EXAM: Yes no CVA tenderness Back/Pelvis: COMMON NORMALS: no CVA tenderness, thoracic and lumbar spine normal to inspection and thoraco-lumbar ROM normal Extremity: COMMON NORMALS: normal to inspection, full ROM and no pedal edema OTHER: Independently ambulatory weightbearing here in the emergency department. Neuro: COMMON NORMALS: patient oriented x3, CN's II-XII intact bilaterally, moves all extremities, no focal motor deficits and gait normal S ENSORIUM/ORIENTATION: Yes alert Skin: COMMON NORMALS: no rashes or lesions noted and turgor normal GENERAL SKIN EXAM: no rashes or lesions noted and turgor normal Course 2 Vital Signs: Vital signs: Vital Signs Temperature 98.3 F 11/25/23 00:38 Pulse Rate 86 11/25/23 00:38 Respiratory Rate 16 11/25/23 00:38 Blood Pressure 142/91 11/25/23 00:38 Pulse Oximetry 97 11/25/23 00:38 Oxygen Delivery Me thod Room Air 11/24/23 22:30 MDM - General Adult Medical Decision Making Patient presents today for evaluation and treatment of recurrent episodes of elevated blood pressure readings. Patient states she does get symptomatic which is what makes her aware that her blood pressure is elevated. She is not sure of any known triggers for her blood pressure. Evaluation here in the emergency department revealed no acute concerns either with a chest x-ray, EKG, lab work/urinalysis-UA with very vague findings of bacteria and white blood cells though there is contamination. Will send to lab for culture over the next 48 hours to evaluate for any bacterial growth. Secondary evaluation of the patient's workup provided by Dr. Jean Baptiste here in the emergency department. Patient is relatively asymptomatic at this time. Her blood pressure is improved at the time of discharge-upon my arrival to the room the patient's systolic reading was in the 140s. We had a long discussion regarding blood pressure. Explained that sometimes, we can treat acutely but, if patient is having recurrent episodes of elevated blood pressure readings, she may need something daily. However, we did discuss the dangers of having too low a blood pressure reading. For that reason, Dr. Jean Baptiste recommends that she keep a log of blood pressure readings until she is able to follow-up with her primary care doctor in the next couple of days. They can talk about recommended treatment course. I also encouraged her to adhere to a Dash diet and diet information was provided at discharge. We discussed signs and symptoms of hypertensive urgency/emergency. She needs to return to the emergency department for chest pains, shortness of breath, blurred or loss of vision, worst headache of her life, dizziness or one-sided body weakness, numbness, or drooping. Differential Diagnosis Acutely elevated blood pressure readings, hypertensive urgency, hypertensive emergency, hypertrophic cardiomyopathy Lab Data 11/24/23 23:00 11/24/23 23:00 Radiology Impressions Chest X-Ray 11/24/23 22:51 IMPRESSION: No acute findings. Laboratory Results WBC 11.74 10^3/uL (3.29-11.43) H 11/24/23 23:00 RBC 5.11 10^6/uL (3.85-5.65) 11/24/23 23:00 Hgb 15.10 g/dL (11.27-16.99) 11/24/23 23:00 Hct 45.7 % (36-47) 11/24/23 23:00 MCV 89.4 fl (85-98) 11/24/23 23:00 MCH 29.5 pg (27-33) 11/24/23 23:00 MCHC 33.0 g/dL (30-55) 11/24/23 23:00 RDW 12.5 % (12.1-15.1) 11/24/23 23:00 Plt Count 249 10^3/cmm (157-399) 11/24/23 23:00 MPV 9.5 fL (7.4-10.4) 11/24/23 23:00 Neut % (Auto) 62.7 % 11/24/23 23:00 Lymph % (Auto) 30.9 % 11/24/23 23:00 [place] % (Auto) 4.7 % 11/24/23 23:00 Eos % (Auto) 0.9 % 11/24/23 23:00 Baso % (Auto) 0.4 % 11/24/23 23:00 Neut # (Auto) 7.35 10^3/uL (1.8-7.7) 11/24/23 23:00 Lymph # (Auto) 3.6 10^3/uL (0.8-4.8) 11/24/23 23:00 [place] # (Auto) 0.6 10^3/uL (0.2-0.9) 11/24/23 23:00 Eos # (Auto) 0.1 10^3/uL (0.0-0.8) 11/24/23 23:00 Baso # (Auto) 0.1 10^3/uL (0.0-0.1) 11/24/23 23:00 Nucleated RBC % (auto) 0 % 11/24/23 23:00 Nucleated RBCs # 0.0 /100WBC 11/24/23 23:00 Sodium 140 mmol/L (136-145) 11/24/23 23:00 Potassium 3.9 mmol/L (3.5-5.1) 11/24/23 23:00 Chloride 104 mmol/L (98-107) 11/24/23 23:00 Carbon Dioxide 26 mmol/L (22-29) 11/24/23 23:00 Anion Gap 13.9 (5-19) 11/24/23 23:00 BUN 12 mg/dL (6-20) 11/24/23 23:00 Creatinine 0.6 mg/dL (0.5-0.9) 11/24/23 23:00 GFR Calculation 119.9 mL/min (90-130) 11/24/23 23:00 Glucose 96 mg/dL (65-115) 11/24/23 23:00 Calculated Osmolality 290 mOsm/kg (285-295) 11/24/23 23:00 Calcium 9.5 mg/dL (8.5-10.5) 11/24/23 23:00 Total Bilirubin 0.2 mg/dL (0.15-1.2) 11/24/23 23:00 AST 12 U/L (0-32) 11/24/23 23:00 ALT 7 U/L (0-33) 11/24/23 23:00 Alkaline Phosphatase 133 U/L (35-105) H 11/24/23 23:00 Total Protein 7.7 g/dL (6.6-8.7) 11/24/23 23:00 Albumin 4.0 g/dL (3.5-5.2) 11/24/23 23:00 Globulin 3.7 g/dL (1.3-4.6) 11/24/23 23:00 HCG, Qual Negative (Negative) 11/24/23 23:17 Urine Color Light yellow (Yellow) 11/24/23 23:17 Urine Appearance Cloudy (CLEAR) A 11/24/23 23:17 Urine pH 8 (5-7) H 11/24/23 23:17 Ur Specific [place] 1.015 (1.005-1.030) 11/24/23 23:17 Urine Protein Neg (Negative) 11/24/23 23:17 Urine Glucose (UA) Norm (Normal) 11/24/23 23:17 Urine Ketones Negative (Negative) 11/24/23 23:17 Urine Blood Neg (Negative) 11/24/23 23:17 Urine Nitrate Negative (Negative) 11/24/23 23:17 Urine Bilirubin Neg (Negative) 11/24/23 23:17 Prot Sulfosalicylic Acd Negative (Negative) 11/24/23 23:17 Urine Urobilinogen Neg mg/dL (Negative) 11/24/23 23:17 Ur Leukocyte Esterase Trace (Negative) H 11/24/23 23:17 Urine RBC None /hpf (0-2) 11/24/23 23:17 Urine WBC 0-4 /hpf (0-5) H 11/24/23 23:17 Ur Squamous Epith Cells 5-10 /hpf (0-5) H 11/24/23 23:17 Amorphous Sediment 3+ /hpf 11/24/23 23:17 Urine Bacteria Trace /hpf (NONE) 11/24/23 23:17 Urine Mucus 1+ /hpf 11/24/23 23:17 All radiology interpretation(s) finalized by discharge Discharge Plan Discharge Patient Disposition: Home Clinical Impression: Elevated blood pressure reading without diagnosis of hypertension Condition: Stable Prescriptions: No Action norgestimate-ethinyl estradiol [Kba-Jb-Ithlimwq] 0.18/0.215/0.25 mg-25 mcg tablet 1 tab PO DAILY sulfamethoxazole-trimethoprim [Bactrim DS] 800-160 mg tablet 1 tab PO BID 7 Days Qty: 14 0RF Gummies 400 mcg-35 mg- 25 mg-5 mg Tablet,Chewable 2 tab PO QAM ibuprofen 800 mg Tablet 800 mg PO TID Qty: 30 0RF Discharge Orders: Discharge ED (Routine); Ordered 11/25/23 Ordered By: Marie Linton Referrals: Kike Sadler MD [Primary Care Provider] - Discharge Diet: Cardiac Discharge Activity: Increase activity as tolerated Patient Instructions: How to Take a Blood Pressure Reading (ED), DASH Eating Plan (ED), Hypertensive Crisis (ED), Hypertension (ED) Activity Restrictions/Additional Instructions: Labs today show no signs of any kidney injury due to recurrent elevated blood pressure readings. As we discussed, blood pressure will fluctuate throughout the day but, if blood pressure is notably elevated and you are having any symptoms of chest pain, shortness of breath, blurry vision, dizziness, or severe headache-these could all be indicators that blood pressure is too high and needs to be treated urgently. Given that you have had symptoms of high blood pressure off and on now for about a year, I do want you to follow-up with your primary care doctor to discuss better control of your blood pressure. Until that time, I recommend checking your blood pressure 3 times a day and keeping a log book. This will help your primary care doctor get a better idea of your blood pressure trends which can help determine the best type of medication to provide to you to control blood pressure readings. However, if you have acutely elevated blood pressure readings with any of the previously mentioned symptoms you need to return to the emergency department for immediate intervention. Coding Level of Care Code ED Medieval English Literature Professor for Chg Fwd Documented by User: Arturo Jean Baptiste MD 11/26/23 18:46 HPI - General Adult 2 General: Chief complaint: General Medical Stated complaint: high bp Time Seen by Provider: 11/24/23 22:30 PFSH ED 2 PFSH: Medical History state, incidental (~05/2021) Obesity Social History Smoking and tobacco/nicotine status: never used tobacco/nicotine Alcohol intake: never Course 2 Vital Signs: Vital signs: Vital Signs Temperature 98.3 F 11/25/23 00:38 Pulse Rate 86 11/25/23 00:38 Respiratory Rate 16 11/25/23 00:38 Blood Pressure 142/91 11/25/23 00:38 Pulse Oximetry 97 11/25/23 00:38 Oxygen Delivery Me thod Room Air 11/24/23 22:30 MDM - General Adult Medical Decision Making Patient presents today for evaluation and treatment of recurrent episodes of elevated blood pressure readings. Patient states she does get symptomatic which is what makes her aware that her blood pressure is elevated. She is not sure of any known triggers for her blood pressure. Evaluation here in the emergency department revealed no acute concerns either with a chest x-ray, EKG, lab work/urinalysis-UA with very vague findings of bacteria and white blood cells though there is contamination. Will send to lab for culture over the next 48 hours to evaluate for any bacterial growth. Secondary evaluation of the patient's workup provided by Dr. Jean Baptiste here in the emergency department. Patient is relatively asymptomatic at this time. Her blood pressure is improved at the time of discharge-upon my arrival to the room the patient's systolic reading was in the 140s. We had a long discussion regarding blood pressure. Explained that sometimes, we can treat acutely but, if patient is having recurrent episodes of elevated blood pressure readings, she may need something daily. However, we did discuss the dangers of having too low a blood pressure reading. For that reason, Dr. Jean Baptiste recommends that she keep a log of blood pressure readings until she is able to follow-up with her primary care doctor in the next couple of days. They can talk about recommended treatment course. I also encouraged her to adhere to a Dash diet and diet information was provided at discharge. We discussed signs and symptoms of hypertensive urgency/emergency. She needs to return to the emergency department for chest pains, shortness of breath, blurred or loss of vision, worst headache of her life, dizziness or one-sided body weakness, numbness, or drooping. Attending physician attestation I discussed the patient's history of present illness, physical exam findings, pertinent labs, pertinent radiographic exams and plan of care with the midlevel provider. I did personally have a [id number] evaluation and discussion with the patient regarding the plan of care. Medical Records I reviewed the patient's medical records. Lab Data I reviewed the patient's lab results. 11/24/23 23:00 11/24/23 23:00 Radiology Impressions Chest X-Ray 11/24/23 22:51 IMPRESSION: No acute findings. Laboratory Results WBC 11.74 10^3/uL (3.29-11.43) H 11/24/23 23:00 RBC 5.11 10^6/uL (3.85-5.65) 11/24/23 23:00 Hgb 15.10 g/dL (11.27-16.99) 11/24/23 23:00 Hct 45.7 % (36-47) 11/24/23 23:00 MCV 89.4 fl (85-98) 11/24/23 23:00 MCH 29.5 pg (27-33) 11/24/23 23:00 MCHC 33.0 g/dL (30-55) 11/24/23 23:00 RDW 12.5 % (12.1-15.1) 11/24/23 23:00 Plt Count 249 10^3/cmm (157-399) 11/24/23 23:00 MPV 9.5 fL (7.4-10.4) 11/24/23 23:00 Neut % (Auto) 62.7 % 11/24/23 23:00 Lymph % (Auto) 30.9 % 11/24/23 23:00 [place] % (Auto) 4.7 % 11/24/23 23:00 Eos % (Auto) 0.9 % 11/24/23 23:00 Baso % (Auto) 0.4 % 11/24/23 23:00 Neut # (Auto) 7.35 10^3/uL (1.8-7.7) 11/24/23 23:00 Lymph # (Auto) 3.6 10^3/uL (0.8-4.8) 11/24/23 23:00 [place] # (Auto) 0.6 10^3/uL (0.2-0.9) 11/24/23 23:00 Eos # (Auto) 0.1 10^3/uL (0.0-0.8) 11/24/23 23:00 Baso # (Auto) 0.1 10^3/uL (0.0-0.1) 11/24/23 23:00 Nucleated RBC % (auto) 0 % 11/24/23 23:00 Nucleated RBCs # 0.0 /100WBC 11/24/23 23:00 Sodium 140 mmol/L (136-145) 11/24/23 23:00 Potassium 3.9 mmol/L (3.5-5.1) 11/24/23 23:00 Chloride 104 mmol/L (98-107) 11/24/23 23:00 Carbon Dioxide 26 mmol/L (22-29) 11/24/23 23:00 Anion Gap 13.9 (5-19) 11/24/23 23:00 BUN 12 mg/dL (6-20) 11/24/23 23:00 Creatinine 0.6 mg/dL (0.5-0.9) 11/24/23 23:00 GFR Calculation 119.9 mL/min (90-130) 11/24/23 23:00 Glucose 96 mg/dL (65-115) 11/24/23 23:00 Calculated Osmolality 290 mOsm/kg (285-295) 11/24/23 23:00 Calcium 9.5 mg/dL (8.5-10.5) 11/24/23 23:00 Total Bilirubin 0.2 mg/dL (0.15-1.2) 11/24/23 23:00 AST 12 U/L (0-32) 11/24/23 23:00 ALT 7 U/L (0-33) 11/24/23 23:00 Alkaline Phosphatase 133 U/L (35-105) H 11/24/23 23:00 Total Protein 7.7 g/dL (6.6-8.7) 11/24/23 23:00 Albumin 4.0 g/dL (3.5-5.2) 11/24/23 23:00 Globulin 3.7 g/dL (1.3-4.6) 11/24/23 23:00 HCG, Qual Negative (Negative) 11/24/23 23:17 Urine Color Light yellow (Yellow) 11/24/23 23:17 Urine Appearance Cloudy (CLEAR) A 11/24/23 23:17 Urine pH 8 (5-7) H 11/24/23 23:17 Ur Specific [place] 1.015 (1.005-1.030) 11/24/23 23:17 Urine Protein Neg (Negative) 11/24/23 23:17 Urine Glucose (UA) Norm (Normal) 11/24/23 23:17 Urine Ketones Negative (Negative) 11/24/23 23:17 Urine Blood Neg (Negative) 11/24/23 23:17 Urine Nitrate Negative (Negative) 11/24/23 23:17 Urine Bilirubin Neg (Negative) 11/24/23 23:17 Prot Sulfosalicylic Acd Negative (Negative) 11/24/23 23:17 Urine Urobilinogen Neg mg/dL (Negative) 11/24/23 23:17 Ur Leukocyte Esterase Trace (Negative) H 11/24/23 23:17 Urine RBC None /hpf (0-2) 11/24/23 23:17 Urine WBC 0-4 /hpf (0-5) H 11/24/23 23:17 Ur Squamous Epith Cells 5-10 /hpf (0-5) H 11/24/23 23:17 Amorphous Sediment 3+ /hpf 11/24/23 23:17 Urine Bacteria Trace /hpf (NONE) 11/24/23 23:17 Urine Mucus 1+ /hpf 11/24/23 23:17 Discharge Plan Discharge Patient Disposition: Home Clinical Impression: Elevated blood pressure reading without diagnosis of hypertension Condition: Stable Prescriptions: No Action norgestimate-ethinyl estradiol [Jww-Vs-Oonvmqui] 0.18/0.215/0.25 mg-25 mcg tablet 1 tab PO DAILY sulfamethoxazole-trimethoprim [Bactrim DS] 800-160 mg tablet 1 tab PO BID 7 Days Qty: 14 0RF Gummies 400 mcg-35 mg- 25 mg-5 mg Tablet,Chewable 2 tab PO QAM ibuprofen 800 mg Tablet 800 mg PO TID Qty: 30 0RF Discharge Orders: Discharge ED (Routine); Ordered 11/25/23 Ordered By: Marie Linton Referrals: Kike Sadler MD [Primary Care Provider] - Discharge Diet: Cardiac Discharge Activity: Increase activity as tolerated Patient Instructions: How to Take a Blood Pressure Reading (ED), DASH Eating Plan (ED), Hypertensive Crisis (ED), Hypertension (ED) Activity Restrictions/Additional Instructions: Labs today show no signs of any kidney injury due to recurrent elevated blood pressure readings. As we discussed, blood pressure will fluctuate throughout the day but, if blood pressure is notably elevated and you are having any symptoms of chest pain, shortness of breath, blurry vision, dizziness, or severe headache-these could all be indicators that blood pressure is too high and needs to be treated urgently. Given that you have had symptoms of high blood pressure off and on now for about a year, I do want you to follow-up with your primary care doctor to discuss better control of your blood pressure. Until that time, I recommend checking your blood pressure 3 times a day and keeping a log book. This will help your primary care doctor get a better idea of your blood pressure trends which can help determine the best type of medication to provide to you to control blood pressure readings. However, if you have acutely elevated blood pressure readings with any of the previously mentioned symptoms you need to return to the emergency department for immediate intervention. Coding Level of Care Code ED Medieval English Literature Professor for Chacho Dubon
[2023-11-24 23:05] LABS: Basophils # 0.1 10^3/uL (0.0-0.1); Basophils % 0.4 %; Eosinophils # 0.1 10^3/uL (0.0-0.8); Eosinophils % 0.9 %; Hematocrit 45.7 % (36-47); Lymphocytes # 3.6 10^3/uL (0.8-4.8); Lymphocytes % 30.9 %; Mean Corpuscular Hemoglobin 29.5 pg (27-33); Mean Corpuscular Volume 89.4 fl (85-98); Mean Platelet Volume 9.5 fL (7.4-10.4); Monocytes # 0.6 10^3/uL (0.2-0.9); Monocytes % 4.7 %; Neutrophils # 7.35 10^3/uL (1.8-7.7); Neutrophils % 62.7 %; Nucleated Red Blood Cells % 0 %; Platelet Count 249 10^3/cmm (157-399); Red Blood Count 5.11 10^6/uL (3.85-5.65); Red Cell Distribution Width 12.5 % (12.1-15.1); White Blood Count 11.74 10^3/uL (3.29-11.43)
[2023-11-24] MEDS: ketorolac 30 mg/mL INJ IVP (23:09)
--- NOTE | 2023-11-24 23:09 | ECG_ITS ---
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 Measurements Intervals [place] Rate: 80 P: 12 DC: 204 QRS: 5 QRSD: 103 T: 6 QT: 340 QTc: 393 Interpretive Statements SINUS RHYTHM WITH SINUS ARRHYTHMIA No previous ECG available for comparison Electronically Signed On 11-25-2023 21:19:31 CDT by Dalton Serna M.D. [id number]
[2023-11-24] MEDS: hyDROXYzine 25 mg Capsule 50 MG PO (23:14)
[2023-11-24 23:20] LABS: Alanine Aminotransferase 7 U/L (0-33); Alkaline Phosphatase 133 U/L (35-105); Aspartate Amino Transferase 12 U/L (0-32); Blood Urea Nitrogen 12 mg/dL (6-20); Calcium 9.5 mg/dL (8.5-10.5); Carbon Dioxide 26 mmol/L (22-29); Chloride 104 mmol/L (98-107); Creatinine Clr Calc Pharmacy 180.9244; Globulin 3.7 g/dL (1.3-4.6); Glomerular Filtration Rate 119.9 mL/min (90-130); Glucose 96 mg/dL (65-115); Osmolality Calculated 290 mOsm/kg (285-295); Sodium 140 mmol/L (136-145); Total Bilirubin 0.2 mg/dL (0.15-1.2); Total Protein 7.7 g/dL (6.6-8.7)
[2023-11-24 23:23] LABS: Anion Gap 13.9 (5-19); Potassium 3.9 mmol/L (3.5-5.1)
[2023-11-24 23:30] LABS: Add Urine Microscopic? YES; Bilirubin Urine Neg (Negative); Blood Urine Neg (Negative); Glucose Urine UA Norm (Normal); Ketones Urine Negative (Negative); Leukocyte Esterase Urine Trace (Negative); Nitrate Urine Negative (Negative); Protein Urine Neg (Negative); Specific Gravity, Urine 1.015 (1.005-1.030); Urine Appearance Cloudy (CLEAR); Urine Color Light yellow (Yellow); Urobilinogen Urine Neg (Negative); pH Urine 8 (5-7)
[2023-11-24 23:31] LABS: Amorphous Sediment Urine 3+ /hpf; Bacteria Urine TRACE /hpf; HCG Qualitative Urine. Negative (Negative); Mucus Urine 1+ /hpf; Sulfosalicylic Acid Urine Negative (Negative); WBC Urine 0-4 /hpf (0-5)
[2023-11-24 23:32] LABS: Add Urine Culture? No
[2023-11-24 23:38] VITALS: BP 161/95; PULSE 87; RESP 16; O2SAT 99
[2023-11-25 00:38] VITALS: BP 142/91; PULSE 86; RESP 16; TEMP 36.8; O2SAT 97
== END 2023-11-25 00:41 | disposition home or self-care (01) ==
PROVIDERS: Emergency Provider Physician Assistant; PCP Family Medicine
DX: R03.0 Elevated blood-pressure reading, without diagnosis of hypertension (principal)
CPT/HCPCS: 36415; 71045; 80053; 81001; 81025; 85025; 87086; 93005; 96374; 99285; J1885

== ENCOUNTER → 2024-04-04 12:24 | Outpatient (BNVA) | payer MEDICAID, SELFPAY | PROVIDERS: PCP Family Medicine; Visit Provider Emergency Medicine | DX: J02.9 Acute pharyngitis, unspecified (principal) | CPT/HCPCS: 87880 ==

== ENCOUNTER 2025-04-13 17:13 | Emergency (ER) | payer OTHER, MEDICAID, SELFPAY ==
[2025-04-13 17:19] VITALS: BP 117/77; PULSE 78; RESP 16; O2SAT 98
--- NOTE | 2025-04-13 17:22 | XRR_ITS ---
PROCEDURE INFORMATION: Exam: XR Right Knee Exam date and time: 04/13/2025 5:31 PM Age: 29 years old Clinical indication: Injury or trauma; Other: Twisted knee; Sprain or strain; Patella or knee; Right TECHNIQUE: Imaging protocol: Radiologic exam of the right knee. Views: 3 views. COMPARISON: No relevant prior studies available. FINDINGS: Bones/joints: No acute fractures. No dislocations. No significant osseous lesions. Soft tissues: No significant soft tissue abnormalities. XR/XR knee RT 3V* [id number] IMPRESSION: No acute fractures or malalignment.
--- NOTE | 2025-04-13 17:22 | W.ED.LOWEXIN ---
HPI - Extremity Injury (Lower) General: Chief Complaint: Extremity Injury, Lower Stated Complaint: Twisted R Knee Time Seen by Provider: 04/13/25 17:21 Source: patient Mode of arrival: ambulatory Limitations: no limitations History of Present Illness: Patient is a 29-year-old female presents to ED today for evaluation of a right knee injury that she sustained earlier today while at work. Patient states she was lifting a client and states she twisted her right knee. She has been ambulatory on the extremity since the injury. She has been utilizing a friend's knee brace to help with stabilization. Denies any previous injuries to the right knee. She has not noticed any significant swelling. She has no other injuries or complaints at this time. MD complaint: knee injury Onset (ago): hour(s) Injury: Right: knee Place: work Severity: moderate Relieving factors: immobilization Exacerbating factors: weight bearing Context: other (twisted) Associated symptoms: Reports no associated symptoms Other symptoms: none Related Data Home Medications ?Medication ?Instructions ?Recorded ?Confirmed norgestimate 0.18 mg/0.215mg/0.25 1 tab PO DAILY 09/11/22 04/04/24 mg-ethinyl estradiol 0.025 mg tablet ([id number]) Previous Rx's ?Medication ?Instructions ?Recorded amoxicillin 500 mg tablet 1,000 mg (2 x 500 mg) PO BID 10 04/04/24 days #40 tabs ibuprofen 800 mg tablet 800 mg PO Q8H PRN pain #30 tabs 04/04/24 Allergies Allergy/AdvReac Type Severity Reaction Status Date / Time No Known Allergies Allergy Verified 04/04/24 12:15 Review of Systems Musc: Reports: joint pain (R knee); Denies: extremity pain, extremity swelling, joint swelling, joint redness, joint warmth, limited range of motion or muscle weakness Neuro: Denies: difficulty walking PFSH ED PFSH: Medical History state, incidental (~05/2021) Obesity Social History Smoking and tobacco/nicotine status: never used tobacco/nicotine Alcohol intake: never Physical Exam Const: COMMON NORMALS: no acute distress, no limitations, alert and well nourished GENERAL APPEARANCE: cooperative Extremity: COMMON NORMALS: normal to inspection, full ROM, capillary refill normal, no clubbing, cyanosis or edema, no calf tenderness and no pedal edema GENERAL: Yes normal exam except as noted RIGHT LOWER EXTREMITY: Yes knee joint Right knee: Yes inspection (normal gross inspection), Yes palpation (TTP along lateral joint line), Yes ROM (normal) and Yes neurovascular exam (normal) Neuro: COMMON NORMALS: moves all extremities, no focal motor deficits, no sensory deficits noted and gait normal SENSORIUM/ORIENTATION: Yes alert Course Vital Signs: Vital signs: Vital Signs Pulse Rate 78 04/13/25 17:19 Respiratory Rate 16 04/13/25 17:19 Blood Pressure 117/77 04/13/25 17:19 Pulse Oximetry 98 04/13/25 17:19 Oxygen Delivery Me thod Room Air 04/13/25 17:19 MDM - Extremity Injury (Lower) Medical Decision Making DDx includes minor sprain/strain, lateral meniscal injury, lateral ligamentous tear/rupture, effusion, among others. XR is unremarkable. Recommend continuing with her splint, ice, elevation, anti-inflammatories. Recommend she speak to her HR department about following up with Worker's Comp. provider for further evaluation which could include continued conservative therapies, physical therapy, MRI imaging. Medical Records I reviewed the patient's medical records. XR interpretation done by ED provider, pending radiology final review Discharge Plan Discharge Patient Disposition: Home Clinical Impression: Injury of knee, right Qualifiers: Encounter type: initial encounter Qualified Code(s): S89.91XA - Unspecified injury of right lower leg, initial encounter Condition: Stable Prescriptions: No Action norgestimate-ethinyl estradiol [Erc-Lf-Aojdzqlk] 0.18/0.215/0.25 mg-25 mcg tablet 1 tab PO DAILY amoxicillin 500 mg tablet 1,000 mg PO BID 10 Days Qty: 40 0RF ibuprofen 800 mg tablet 800 mg PO Q8H PRN (Reason: pain) Qty: 30 0RF Discharge Orders: Discharge ED (Routine); Ordered 04/13/25 Ordered By: Destiny Zhu Referrals: Kike Sadler MD [Primary Care Provider, Family Practice] Patient Instructions: Patient Portal & Catrina Instructions Activity Restrictions/Additional Instructions: As we discussed, x-ray imaging of your knee was unremarkable. You will need to speak to your human resource department about following up with a Worker's Comp. provider for further evaluation and treatment of your knee pain. In the meantime, I would like you to continue wearing your knee brace, ice, elevate the extremity, and begin taking an cced-iif-vvjeajp anti-inflammatory such as Motrin or naproxen. Print Language: Emirati Coding Level of Care Code ED Senior Planner for [facility]
[2025-04-13 17:59] VITALS: BP 120/84; PULSE 80; RESP 18; O2SAT 99
== END 2025-04-13 18:00 | disposition home or self-care (01) ==
PROVIDERS: Emergency Provider Physician Assistant; PCP Family Medicine
DX: S89.91XA Unspecified injury of right lower leg, initial encounter (principal); X58.XXXA Exposure to other specified factors, initial encounter
CPT/HCPCS: 73562; 99283